=== PATIENT | male | born 1970 | race African-American/Black ===

== ENCOUNTER 2023-10-25 10:38 | Emergency (ER) | payer OTHER ==
[2023-10-25 10:47] VITALS: BMI 26.4
[2023-10-25 12:41] LABS: BASO % 0.8 % (0-2.0); EOS % 1.6 % (0-4.5); HEMATOCRIT 43.4 % (35.4-49); HEMOGLOBIN 15.2 GM/dL (11.7-16.9); LYMPH % 25.3 % (8-40); MCH 33.1 pg (25.7-33.7); MEAN CELL VOLUME 94.5 fl (80-96); MEAN PLT VOLUME 8.1 fl (7.5-11.1); NEUT % 64.3 % (42.8-82.8); PLATELET COUNT 266 10^3/uL (134-434); RBC 4.59 M/mm3 (4.00-5.60); WHITE BLOOD COUNT 8.1 K/mm3 (4.0-10.0)
[2023-10-25 13:07] LABS: POTASSIUM 4.3 mmol/L (3.5-5.1)
[2023-10-25 13:09] LABS: CALCIUM 8.9 mg/dL (8.5-10.1)
[2023-10-25 13:10] LABS: ALBUMIN 3.9 g/dl (3.4-5.0); BLOOD UREA NITROGEN 7.1 mg/dL (7-18)
[2023-10-25 13:13] LABS: CREATININE 0.8 mg/dL (0.55-1.3)
[2023-10-25 13:14] LABS: BILIRUBIN,TOTAL 0.9 mg/dL (0.2-1); TOT PROT 7.4 g/dl (6.4-8.2)
[2023-10-25 13:18] LABS: N-TERMINAL BNP 24.4 pg/ml (5-125)
[2023-10-25 14:25] VITALS: BP 146/89; PULSE 62; RESP 16; TEMP 97.9
== END 2023-10-25 14:25 | disposition home or self-care (01) ==
LOC: JER 10:38
DX: M54.2 Cervicalgia (principal); R20.2 Paresthesia of skin; R53.1 Weakness; R60.0 Localized edema; R20.0 Anesthesia of skin; M79.89 Other specified soft tissue disorders
CPT/HCPCS: 36415; 71046-TC-FY; 80053; 83880; 84484; 85025; 93005; 93010; 99285-25